=== PATIENT | female | born 1985 | race Caucasian/White ===

== ENCOUNTER 2019-06-14 16:44 | Emergency (ER) | payer MEDICAID, SELFPAY ==
[2019-06-14 16:48] VITALS: BP 107/70; PULSE 90; RESP 18; TEMP 36.5; O2SAT 97; BMI 20.2
[2019-06-14 17:07] VITALS: RESP 16
--- NOTE | 2019-06-14 17:39 | ED.VIS.GI ---
History of Present Illness Informant: Patient - Abdominal Pain/Flank Pain Onset: Today Context: Sudden Onset Timing: Intermittent Quality: Cramping Location: LLQ Current Severity: Mild Maximum Severity: Severe Worsened by: Nothing Relieved by: Remaining Still - Nausea/Vomiting/Emesis GI Symptom: Nausea. Negative for: Vomiting - Diarrhea/Melena/Hematochezia GI Symptom: Negative for: Diarrhea, Melena, Hematochezia Associated Symptoms: Negative for: Dysuria, Frequency, Hematuria, Urgency Narrative: 34-year-old female past medical history of endometriosis status post right ovary removal and hysterectomy presents to the emergency department with several hours of intermittent sharp stabbing left lower quadrant abdominal pain. Associated nausea but no vomiting. No back pain. No fevers. No urinary symptoms. No vomiting or diarrhea. No melena or hematochezia. She has a history of endometriosis and ovarian cyst on her right ovary however that was removed she does not know she has had one left-sided. Prior similar symptoms: Yes Recent Illness/Hospitalization: No <Jurgen Matthews - Last Filed: 06/14/19 17:39> <Ramírez Lopezo - Last Filed: 06/14/19 22:12> Chief Complaint: Abd Pain Past Medical History Prior records reviewed: Yes Past Medical History: - - endometriosis Surgical History: hysterectomy, - - right ovary removal Smoking Status: Current every day smoker <Jurgen Matthews - Last Filed: 06/14/19 17:39> <JohnMunir - Last Filed: 06/14/19 22:12> - Allergies and Home Meds Allergies/Adverse Reactions: Allergies acetaminophen [From Percocet] Adverse Reaction (Verified 06/14/19 16:46) Nausea oxycodone [From Percocet] Adverse Reaction (Verified 06/14/19 16:46) Nausea MUSCLE RELAXERS Allergy (Uncoded 06/14/19 16:46) Hives Primary Care Physician: Trell Solorzano PA [Primary Care Provider] - Review of Systems All systems negative except as indicated Gastrointestinal: Reports: Abdominal pain, Nausea <Jurgen Matthews - Last Filed: 06/14/19 17:39> Physical Exam Vital Signs/Narrative: Vital Signs Temp Pulse Resp BP Pulse Ox 06/14/19 17:07 16 06/14/19 16:48 97.7 F L 90 18 107/70 97 Inital Vital Signs reviewed: Yes General: Well nourished, Well developed Head: Normocephalic, Atraumatic Eyes: Perrl, EOMI ENT: Moist mucous membranes Neck: Supple, Nontender Cardiovascular: Regular rate, Regular rhythm, No murmurs Respiratory: No distress, CTA bilaterally, Chest nontender Abdomen: Soft, Nondistended, Normal bowel sounds, No masses, Tender - LLQ TTP. Negative for: Guarding, Rebound tenderness Back: Nontender Extremities: Nontender Skin: Normal color, No rash Neurological: Alert, Oriented x3 <CassieJurgen - Last Filed: 06/14/19 17:39> Vital Signs/Narrative: Vital Signs Resp 06/14/19 19:43 16 <LopezMunir - Last Filed: 06/14/19 22:12> Diagnostic/Tx/Re-eval Impressions Abdomen/Pelvis CT 06/14/19 19:42 IMPRESSION: Trace pelvic free fluid with rim-enhancing collapsing left ovarian follicle. Findings could represent recent ovulation and a small amount of ascites reactive to blood and ovulation within the pelvis. If this is causing the patient's pain, this has been termed mittelschmerz. Individualized dose optimization techniques were used for this CT. at 2202 Reported and signed by: Angel Funk MD Electronically Signed: Anegl Funk MD at 22:01 EDT Tel , Service support , 06/14/19 19:42 Abdomen/Pelvis WITH Contrast [CT] Stat Laboratory Results 06/14/19 06/14/19 17:02 18:06 WBC 6.8 RBC 4.96 Hgb 14.7 Hct 44.8 MCV 90.3 MCH 29.6 MCHC 32.8 RDW Std Deviation 42.4 RDW Coeff of Iris 12.8 Plt Count 226 MPV 11.4 Immature Gran % (Auto) 0.300 Neut % (Auto) 73.4 H Lymph % (Auto) 18.7 L [place] % (Auto) 6.0 Eos % (Auto) 1.2 Baso % (Auto) 0.4 Absolute Neuts (auto) 5.0 Absolute Lymphs (auto) 1.28 Nucleated RBC % 0 Urine Color Yellow Urine Clarity Sl. Cloudy Urine pH 7.0 Ur Specific [place] 1.010 Urine Protein 15 H Urine Glucose (UA) Normal Urine Ketones Negative Urine Occult Blood Negative Urine Nitrite Negative Urine Bilirubin Negative Urine Urobilinogen 1 H Ur Leukocyte Esterase 25 H Urine RBC 0 SEEN Urine WBC 0-5 SEEN Ur Squamous Epith Cells 0-5 SEEN Urine Bacteria 0 SEEN Urine Mucus 0 SEEN Based on work-up patient pain most likely from a ruptured ovarian cyst. - Medical Decision Making Document was added by me. I performed my own independent history and physical. Patient has history of endometriosis. She is status post hysterectomy with salpingo-oophorectomy on the right. Her discomfort may be secondary to left ovarian disease. Because she reports diarrhea need to consider infectious versus inflammatory colitis as well. To better determine etiology of her pain a CT of the abdomen with p.o. and IV contrast was obtained. As documented laboratory section patient pain is from an ovarian cyst. Radiologist documents lucila. <Ramírez Lopezo - Last Filed: 06/14/19 22:12> ED Disposition <Jurgen Matthews - Last Filed: 06/14/19 17:39> <Ramírez Lopezo - Last Filed: 06/14/19 22:12> - Plan for ED Patient: Disposition: Home or Assisted Living Diagnosis: Rupture of follicular cyst of ovary Instructions: Ovarian Cyst Referrals: Trell Solorzano PA [Primary Care Provider] - 3-5 Days if not improving Additional Instructions: Recommend taking either 4 ibuprofen tablets every 8 hours or 2 Aleve tablets every 12 hours for the next 2 to 3 days for your discomfort.
[2019-06-14 17:41] LABS: Absolute Lymphocyte Count 1.28 X10^3/uL (0.83-4.51); Basophil# 0.03 X10^3/uL; Basophil% 0.4 % (0-1); Eosinophil# 0.08 X10^3/uL; Eosinophils% 1.2 % (0-5); Hematocrit 44.8 % (37-47); Hemoglobin 14.7 g/dL (12.0-15.0); Lymphocyte # 1.28 X10^3/ul (4.0); Lymphocyte % 18.7 % (19-41); Mean Corp Hgb Conc 32.8 g/dL (32-36); Mean Corpuscular Hgb 29.6 pg (27.0-32.0); Mean Corpuscular Volume 90.3 fL (81-99); Mean Platelet Vol. 11.4 fl (6.2-12.0); Monocyte# 0.41 X10^3/uL; NRBC Flagged by Analyzer 0 % (0-5); Neutrophil # 5.01 X10^3/uL (2.7-7.7); Neutrophil % 73.4 % (47-70); Platelet Count 226 K/mm3 (150-450); RBC Distribution Width CV 12.8 % (11.6-14.6); RBC Distribution Width SD 42.4 fl (35.1-43.9); Red Blood Count 4.96 M/mm3 (4.2-5.4); White Blood Count 6.8 K/mm3 (4.4-11.0)
[2019-06-14] MEDS: Ketorolac 30 MG/ML Syringe IV (17:41)
[2019-06-14 18:17] LABS: Bacteria 0 SEEN /hpf (None Seen); Mucous, Urine 0 SEEN /hpf (<or=2+); Red Blood Cells-Urine 0 SEEN /hpf (0-5)
[2019-06-14 18:32] LABS: Color, Urine Yellow (Yellow); Glucose, Dipstick Normal (Normal); Ketone-Dipstick Negative (Negative); Leukocyte Esterase-Dipstick 25 /ul (Negative); Nitrite-Dipstick Negative (Negative); Occult Blood-Urine Negative /ul (Negative); Protein-Dipstick 15 mg/dl (Negative); Urine Bilirubin Dipstick Negative (Negative); Urine Clarity Sl. Cloudy (Clear); Urine Urobilinogen 1 mg/dl (Normal)
[2019-06-14 19:00] LABS: Squamous Epithelial Cells - UA 0-5 SEEN /hpf (5-10); White Blood Cells 0-5 SEEN /hpf (0-5)
--- NOTE | 2019-06-14 19:42 | CT_ITS ---
HISTORY: LT SIDED ABDOMEN PAIN AND NAUSEAHX:ENDOMETRIOSIS WITH HYSTERECTOMY-ONLY HAS LT OVARY TECHNIQUE: Helically acquired images were obtained of the abdomen and pelvis following the intravenous administration of 100ML ml of Isovue 300 Iodinated contrast. 2D reformats. Oral contrast was administered. A radiation dose optimization technique was used for this scan. COMPARISON: None FINDINGS: # of images incl. paperwork: 350 LUNG BASES 6 mm pleural parenchymal peripheral nodule in the right lower lobe: CT abdomen: Bones are unremarkable. The gallbladder remains. Liver, spleen, pancreas, and adrenal glands, are normal. The kidneys are normal. The aorta is normal. CT pelvis: Trace pelvic ascites is present. The uterus has been resected. . A rim-enhancing collapsing follicle is present on the left ovary. The appendix is normal. Series 2 image 72. The bladder is decompressed. Bowel-gas pattern is normal. CT/Abdomen/Pelvis WITH Contrast IMPRESSION: Trace pelvic free fluid with rim-enhancing collapsing left ovarian follicle. Findings could represent recent ovulation and a small amount of ascites reactive to blood and ovulation within the pelvis. If this is causing the patient's pain, this has been termed mittelschmerz. Individualized dose optimization techniques were used for this CT. at 2202 Reported and signed by: Angel Funk MD Electronically Signed: Angel Funk MD at 22:01 EDT Tel , Service support ,
[2019-06-14 19:43] VITALS: RESP 16
[2019-06-14 22:32] VITALS: BP 93/71; PULSE 62; RESP 16; O2SAT 99
== END 2019-06-14 22:33 | disposition home or self-care (01) ==
PROVIDERS: Emergency Provider Physician Assistant Medical; Family Provider Physician Assistant; PCP Physician Assistant
DX: N83.02 Follicular cyst of left ovary (principal); F17.200 Nicotine dependence, unspecified, uncomplicated
CPT/HCPCS: 74177; 81001; 85025; 96374; 99285; Q9967; A4216